=== PATIENT | female | born 1980 | race Caucasian/White ===

== ENCOUNTER 2017-08-08 17:48 | Emergency (ER) | payer MEDICAID ==
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
--- NOTE | 2017-08-09 06:57 | CR ---
Left knee: Four views of the left knee were obtained. Comparison: No previous study. Medial and lateral joint spaces are preserved. No joint effusion is seen. No fracture or other bony abnormality is appreciated. Impression: 1. No acute abnormality is identified on left knee exam. Diagnostic code #1
== END 2017-08-08 19:33 | disposition home or self-care (01) ==
LOC: JD.ED 17:48
DX: S80.02XA Contusion of left knee, initial encounter (principal); F17.210 Nicotine dependence, cigarettes, uncomplicated; V87.8XXA Person injured in other specified noncollision transport accidents involving motor vehicle (traffic), initial encounter
CPT/HCPCS: 73564-26-LT; 73564-LT; 99283

== ENCOUNTER 2019-08-19 12:08 | Emergency (ER) | payer SELFPAY ==
[2019-08-19] MEDS ORDERED: Metoclopramide 10 MG/2 ML SDV IVPUSH ONE (12:24)
[2019-08-19] MEDS ORDERED: HYDROmorphone 0.5 MG/0.5 ML Syringe IVPUSH ONE (12:24)
--- NOTE | 2019-08-19 12:24 | EDM.PDOC ---
ED HPI GENERAL MEDICAL PROBLEM - General Chief Complaint: Abdominal Pain Stated Complaint: ABDOMINAL PAIN,NAUSEA Time Seen by Provider: 08/19/19 12:17 Source of Information: Reports: Patient History Limitations: Reports: No Limitations - History of Present Illness INITIAL COMMENTS - FREE TEXT/NARRATIVE: 39-year-old female presents the ED with diffuse abdominal pain and nausea she tries to eat. She been feeling under the weather for over a week. She was seen in the clinic on Tuesday, August 15 and KUB suggested she may be constipated. She did take MiraLAX by mouth and had one formed bowel movement followed by 3 diarrhea stools. However she remains nauseated finds it difficult to eat. Pain is felt persistently across her lower abdomen infraumbilical. Only previous abdominal surgery is that of a tubal ligation. Patient has not vomited. She recognizes she is losing weight because she can't eat. Very rare alcohol use. Not aware of any fever or chills per se. Onset: Gradual Onset Date: 08/11/19 Duration: Day(s):, Getting Worse, Waxing/Waning Location: Reports: Abdomen (Mostly lower abdominal discomfort suprapubically radiating across both lower quadrants of the abdomen.) Quality: Reports: Ache, Other (Associated nausea if she tries to eat.) Severity: Moderate Improves with: Reports: None Worsens with: Reports: Eating Context: Reports: Other. Denies: Activity, Exercise, Lifting, Sick Contact, Trauma Associated Symptoms: Reports: Loss of Appetite, Malaise. Denies: Confusion, Chest Pain (Spontaneous occurrence), Cough, cough w sputum, Diaphoresis, Fever/ Chills, Headaches, Nausea/Vomiting, Rash, Seizure, Shortness of Breath, Syncope Treatments [employer]: Reports: Other (see below) (None.) Abdomen Pain Score (Numeric/FACES): 6 - Related Data Allergies Allergy/AdvReac Type Severity Reaction Status Date / Time No Known Allergies Allergy Verified 08/08/17 17:57 Home Meds: Home Meds Ondansetron [Zofran] 4 mg BUCCAL Q6H PRN #5 tab 08/19/19 [Rx] Past Medical History - Past Surgical History Female Surgical History: Reports: Tubal Ligation (Done infraumbilical.) Social & Family History - Family History Family Medical History: Noncontributory - Caffeine Use Caffeine Use: Reports: Coffee, Energy Drinks, Soda, Tea - Living Situation & Occupation Living situation: Reports: Single Occupation: Unemployed ED ROS GENERAL - Review of Systems Review Of Systems: See Below Constitutional: Reports: Malaise, Weakness, Fatigue, Decreased Appetite, Weight Loss. Denies: Fever, Chills HEENT: Reports: No Symptoms Respiratory: Reports: No Symptoms Cardiovascular: Reports: No Symptoms Endocrine: Reports: No Symptoms GI/Abdominal: Reports: Abdominal Pain, Decreased Appetite (See history of present illness), Nausea. Denies: Constipation, Hematemesis, Hematochezia, Vomiting : Reports: No Symptoms Musculoskeletal: Reports: No Symptoms Skin: Reports: No Symptoms Neurological: Reports: No Symptoms Psychiatric: Reports: No Symptoms Hematologic/Lymphatic: Reports: No Symptoms Immunologic: Reports: No Symptoms ED EXAM, GI/ABD - Physical Exam Exam: See Below Exam Limited By: No Limitations General Appearance: Alert, WD/WN, No Apparent Distress, Other (Mildly palate in color. Vital signs show temperature 36.3 pulse is 91 and sinus respiratory distress 20 BP is 136/88 and O2 sats are 100% on room air.) Eyes: Bilateral: Normal Appearance (No scleral icterus. No peripheral pallor.) Throat/Mouth: Other Head: Atraumatic (Lips are mildly dry. Tongue is mildly dry and coated.), Normocephalic Neck: Normal Inspection, Supple, Non-Tender, Full Range of Motion. No: Lymphadenopathy (L), Lymphadenopathy (R) Respiratory/Chest: No Respiratory Distress, Lungs Clear, Normal Breath Sounds, No Accessory Muscle Use Cardiovascular: Normal Peripheral Pulses, Regular Rate, Rhythm, No Edema, No Gallop, No Murmur, No Rub GI/Abdominal Exam: Soft (Bowel sounds are few and far between.), No Organomegaly , No Distention, No Mass, Pelvis Stable, Tender (Tender along the right upper quadrant medially with a positive 's sign.), Abnormal Bowel Sounds Back Exam: Normal Inspection, Full Range of Motion. No: CVA Tenderness (L), CVA Tenderness (R) Extremities: Normal Inspection, Normal Range of Motion, Non-Tender, No Pedal Edema Neurological: Alert, Oriented, CN II-XII Intact, Normal Cognition Psychiatric: Normal Affect, Normal Mood Skin Exam: Warm, Dry, Intact, Normal Color, No Rash Course - Vital Signs Last Recorded V/S: Last Vital Signs Temp 36.3 C 08/19/19 12:20 Pulse 91 08/19/19 12:20 Resp 20 08/19/19 12:20 BP 136/88 08/19/19 12:20 Pulse Ox 100 08/19/19 12:20 - Orders/Labs/Meds Orders: Active Orders 24 hr Category Date Time Status Abdomen 1V Flat [CR] Stat Exams 08/19/19 12:26 Taken URINALYSIS W/MICROSCOPIC [UA W/MICROSCOPIC] [URIN] Stat Lab 08/19/19 13:28 Results Dextrose 5%-Lactated Ringers 1,000 ml Med 08/19/19 12:30 Active IV ASDIRECTED Medication Orders Dextrose/Lactated Ringer's (Dextrose 5%-Lactated Ringers) 1,000 mls @ 999 mls/ hr IV ASDIRECTED ROLANDO Last Admin: 08/19/19 12:38 Dose: 999 mls/hr Labs: Laboratory Tests 08/19/19 08/19/19 08/19/19 Range/Units 12:50 12:50 12:50 WBC 6.61 (3.98-10.04) K/mm3 RBC 4.67 (3.98-5.22) M/mm3 Hgb 13.3 (11.2-15.7) gm/dl Hct 40.7 (34.1-44.9) % MCV 87.2 (79.4-94.8) fl MCH 28.5 (25.6-32.2) pg MCHC 32.7 (32.2-35.5) g/dl RDW Std Deviation 42.0 (36.4-46.3) fL Plt Count 276 (182-369) K/mm3 MPV 11.4 (9.4-12.3) fl Neut % (Auto) 67.4 (34.0-71.1) % Lymph % (Auto) 24.5 (19.3-51.7) % Preston % (Auto) 6.2 (4.7-12.5) % Eos % (Auto) 1.2 (0.7-5.8) Baso % (Auto) 0.5 (0.1-1.2) % Neut # (Auto) 4.46 (1.56-6.13) K/mm3 Lymph # (Auto) 1.62 (1.18-3.74) K/mm3 Preston # (Auto) 0.41 H (0.24-0.36) K/mm3 Eos # (Auto) 0.08 (0.04-0.36) K/mm3 Baso # (Auto) 0.03 (0.01-0.08) K/mm3 Sodium 141 (136-145) mEq/L Potassium 4.3 (3.5-5.1) mEq/L Chloride 106 (98-107) mEq/L Carbon Dioxide 26 (21-32) mEq/L Anion Gap 13.3 (5-15) BUN 10 (7-18) mg/dL Creatinine 0.8 (0.55-1.02) mg/dL Est Cr Clr Drug Dosing 76.55 mL/min Estimated GFR (MDRD) > 60 (>60) mL/min BUN/Creatinine Ratio 12.5 L (14-18) Glucose 87 (74-106) mg/dL Calcium 8.9 (8.5-10.1) mg/dL Total Bilirubin 0.5 (0.2-1.0) mg/dL GGT 27 (5-55) U/L AST 14 L (15-37) U/L ALT 26 (14-59) U/L Alkaline Phosphatase 78 (46-116) U/L C-Reactive Protein < 0.2 (<1.0) mg/dL Total Protein 7.6 (6.4-8.2) g/dl Albumin 3.9 (3.4-5.0) g/dl Globulin 3.7 gm/dL Albumin/Globulin Ratio 1.1 (1-2) Lipase 69 L (73-393) U/L Urine Color (Yellow) Urine Appearance (Clear) Urine pH (5.0-8.0) Ur Specific [place] (1.005-1.030) Urine Protein (Negative) Urine Glucose (UA) (Negative) Urine Ketones (Negative) Urine Occult Blood (Negative) Urine Nitrite (Negative) Urine Bilirubin (Negative) Urine Urobilinogen (0.2-1.0) Ur Leukocyte Esterase (Negative) Ketones 0.2 (0.0-0.3) mM 08/19/ Range/Units 13:28 WBC (3.98-10.04) K/mm3 RBC (3.98-5.22) M/mm3 Hgb (11.2-15.7) gm/dl Hct (34.1-44.9) % MCV (79.4-94.8) fl MCH (25.6-32.2) pg MCHC (32.2-35.5) g/dl RDW Std Deviation (36.4-46.3) fL Plt Count (182-369) K/mm3 MPV (9.4-12.3) fl Neut % (Auto) (34.0-71.1) % Lymph % (Auto) (19.3-51.7) % Preston % (Auto) (4.7-12.5) % Eos % (Auto) (0.7-5.8) Baso % (Auto) (0.1-1.2) % Neut # (Auto) (1.56-6.13) K/mm3 Lymph # (Auto) (1.18-3.74) K/mm3 Preston # (Auto) (0.24-0.36) K/mm3 Eos # (Auto) (0.04-0.36) K/mm3 Baso # (Auto) (0.01-0.08) K/mm3 Sodium (136-145) mEq/L Potassium (3.5-5.1) mEq/L Chloride (98-107) mEq/L Carbon Dioxide (21-32) mEq/L Anion Gap (5-15) BUN (7-18) mg/dL Creatinine (0.55-1.02) mg/dL Est Cr Clr Drug Dosing mL/min Estimated GFR (MDRD) (>60) mL/min BUN/Creatinine Ratio (14-18) Glucose (74-106) mg/dL Calcium (8.5-10.1) mg/dL Total Bilirubin (0.2-1.0) mg/dL GGT (5-55) U/L AST (15-37) U/L ALT (14-59) U/L Alkaline Phosphatase (46-116) U/L C-Reactive Protein (<1.0) mg/dL Total Protein (6.4-8.2) g/dl Albumin (3.4-5.0) g/dl Globulin gm/dL Albumin/Globulin Ratio (1-2) Lipase (73-393) U/L Urine Color Light yellow (Yellow) Urine Appearance Clear (Clear) Urine pH 7.0 (5.0-8.0) Ur Specific [place] 1.020 (1.005-1.030) Urine Protein Negative (Negative) Urine Glucose (UA) Trace H (Negative) Urine Ketones Negative (Negative) Urine Occult Blood 2+ H (Negative) Urine Nitrite Negative (Negative) Urine Bilirubin Negative (Negative) Urine Urobilinogen 0.2 (0.2-1.0) Ur Leukocyte Esterase Negative (Negative) Ketones (0.0-0.3) mM Meds: Medications Generic Name Dose Route Start Last Admin Trade Name Freq PRN Reason Stop Dose Admin Dextrose/Lactated Ringer's 1,000 mls @ 999 mls/hr 08/19/19 12:30 08/19/19 12: 38 Dextrose 5%-Lactated Ringers IV 999 mls/hr ASDIRECTED ROLANDO Administration Discontinued Medications Generic Name Dose Route Start Last Admin Trade Name Freq PRN Reason Stop Dose Admin Hydromorphone HCl 0.5 mg 08/19/19 12:24 08/19/19 12:56 Dilaudid IVPUSH 08/19/19 12:25 0.5 mg ONETIME ONE Administration Metoclopramide HCl 7.5 mg 08/19/19 12:24 08/19/19 12:54 Reglan IVPUSH 08/19/19 12:25 7.5 mg ONETIME ONE Administration - Radiology Interpretation Free Text/Narrative:: 39-year-old female presents to the ED with a one-week history of generally not feeling well. She reports nausea most of the time worsened if she tries to eat. She has not vomited. She attended the clinic on Tuesday last week and KUB suggested she may be constipated. She did take MiraLAX with one bowel movement followed by 3 L diarrhea stools. She reports she's not been able to eat very much because of the increased pain if she tries to eat. Pain is felt mostly across her lower abdomen I infraumbilical. On exam she has a positive 's sign and tenderness along the right costal margin on palpation suggesting possibility of gallbladder disease. Bowel sounds are few and far between throughout the abdomen but the rest of the abdomen is benign with no guarding or rebound tenderness or localized pain. An IV will be D5 Ringer's lactate at open. Will be given Reglan 7.5 mg IV for nausea relief and Dilaudid 0.5 mg IV for pain relief. Routine labs including a serum lipase and CRP and GGT will be obtained. One view of the abdomen to be done. - Re-Assessments/Exams Free Text/Narrative Re-Assessment/Exam: 08/19/19 13:15: KUB reveals a bolus of stool in the hepatic flexure coming from the ascending colon across the hepatic flexure of the transverse colon. There are several dilated loops of small bowel also in this area compatible with an ileus like pattern. No bowel obstruction is evident. There is mild amount of stool in the rectal vault. Bedside ultrasound was performed by me. I found this quite difficult because of the overlying skin stool in the colon. Gallbladder that I could visualized and contains no stones and no pericholecystic fluid or thickened gallbladder wall. 08/19/19 13:36 White count is 6.61 with auto differential of 67.4% neutrophils. Hemoglobin is 13.3 with hematocrit of 40.7. Platelet counts 276,000. Sodium 141 with potassium of 4.3. Toward 106 with a bicarbonate 26. Anion gap is 13.3 BUN is 10 with a creatinine of 0.8. GFR remains greater than 60. Blood glucose is 87. Calcium is 8.9. Liver function is completely normal. C-reactive protein is less than 0.2. Lipase is 69. Total protein is 7.6 with an albumin fraction of 3.9. Serum ketones are 0.2. 08/19/19 13:55 patient remains completely pain-free. Labs are normal. Going to place her on 5 scoops of MiraLAX powder in 20 ounces of Gatorade to provide bowel movement versus magnesium citrate. I will have her stay on MiraLAX powder 17 g once daily to provide regular bowel movements for the next couple of weeks. I will send her home is Zofran 4 mg sublingual every 4-6 hours when necessary for nausea relief if needed. Departure - Departure Time of Disposition: 13:56 Disposition: Home, Self-Care 01 Condition: Fair Clinical Impression: Constipation by delayed colonic transit Abdominal pain Qualifiers: Abdominal location: lower abdomen, unspecified Qualified Code(s): R10.30 - Lower abdominal pain, unspecified - Discharge Information *PRESCRIPTION DRUG MONITORING PROGRAM REVIEWED*: Not Applicable *COPY OF PRESCRIPTION DRUG MONITORING REPORT IN PATIENT VANESA: Not Applicable Prescriptions: Ondansetron [Zofran] 4 mg BUCCAL Q6H PRN #5 tab PRN Reason: nausea or vomiting Instructions: Constipation, Adult Referrals: Patricio Becerra MD [Primary Care Provider] - Forms: ED Department Discharge Additional Instructions: Evaluation the emergency room today due to persistent nausea for the better part of her week making it difficult to eat or drink anything. Persistent diffuse lower abdominal discomfort and bloat. Evaluation with on August 15 suggested that you were suffering constipation. Magnesium citrate or Citroma produced one bowel movement but lots of loose diarrhea stool. In spite of this the pain persists associated with nausea. Benign abdominal examination with question bowel sounds on exam. Also identified some tenderness in the right upper quadrant of the abdomen exam suggesting the possibility of gallbladder disease. Once again an x-ray that was done and shows stool up in the right upper quadrant of the abdomen in the distribution of where your pain is on exam. This is in the upper or the ascending colon in the beginning portion of the transverse colon up underneath her right rib cage. Is a small amount of stool down in the rectal vault as well. There is air in the small bowel and it is slightly dilated as it is having trouble passing through the stool plug in the right hemicolon. Lab tests proved to be completely normal with no signs of pancreatitis or inflammation of the liver or any signs of infection. You're treated with intravenous fluids and Dilaudid 0.5 mg with Reglan 7.5 mg to reduce nausea and pain which was successful. Suggest treatment at home to be 5 scoops of MiraLAX powder with 20 ounces of Gatorade by mouth. This will usually make her bowels work slowly in 45 hours once or twice and help the stool plug move along. I would suggest taking MiraLAX powder 17 g 1 scoop every day for the next 2 weeks to make sure the bowels stays regular and prevent recurrence of similar problems. Coarse drinking plenty of fluids is important and whole-grain breads and cereals and plenty of vegetables and increase fiber. I have also written a prescription for Zofran 4 mg to be taken under your tongue every 4-6 hours needed for nausea relief so that she can eat and drink normally. Follow-up with personal care physician if any further problems occur or you are not markedly improved in 48-72 hours time. - My Orders Last 24 Hours: My Active Orders 08/19/19 12:26 Abdomen 1V Flat [CR] Stat 08/19/19 12:30 Dextrose 5%-Lactated Ringers 1,000 ml IV ASDIRECTED 08/19/19 13:28 URINALYSIS W/MICROSCOPIC [UA W/MICROSCOPIC] [URIN] Stat - Assessment/Plan Last 24 Hours: My Active Orders 08/19/19 12:26 Abdomen 1V Flat [CR] Stat 08/19/19 12:30 Dextrose 5%-Lactated Ringers 1,000 ml IV ASDIRECTED 08/19/19 13:28 URINALYSIS W/MICROSCOPIC [UA W/MICROSCOPIC] [URIN] Stat
[2019-08-19] MEDS ORDERED: Dextrose 5%-Lactated Ringers 1,000 ML IV SCH (12:30)
--- NOTE | 2019-08-19 16:15 | CR ---
Abdomen: Supine view of the abdomen was obtained. Comparison: No previous study. Calcifications are seen within the pelvis which are compatible with phleboliths. Bowel gas pattern is felt to be within normal limits. No discrete soft tissue finding is seen. Bony structures are unremarkable. Impression: 1. Nothing acute is appreciated on supine abdominal x-ray. Diagnostic code #2
== END 2019-08-19 14:05 | disposition home or self-care (01) ==
LOC: JD.ED 12:08
DX: K59.01 Slow transit constipation (principal); R10.33 Periumbilical pain
CPT/HCPCS: 36415; 74018; 80053; 81001; 82009; 82977; 83690; 85025; 86140; 96361; 96374; 96375; 99284; J1170; J2765; J7042; 99283

== ENCOUNTER 2020-02-04 20:42 | Emergency (ER) | payer MEDICAID ==
--- NOTE | 2020-02-04 21:47 | EDM.PDOC ---
ED HPI GENERAL MEDICAL PROBLEM - General Chief Complaint: ENT Problem Stated Complaint: PRESSURE IN THROAT AND SEEING SPOTS IN VISION Time Seen by Provider: 02/04/20 21:03 Source of Information: Reports: Patient, RN Notes Reviewed - History of Present Illness INITIAL COMMENTS - FREE TEXT/NARRATIVE: 39 yr old female with a mild soreness and sensation of swelling or something stuck R throat for the past 2 to 3 wks. No severe pain with swollowing. Has been eating and drinking OK. No fever, chills, cough or nasal arcenio. This evening at work started feeling light headed, dizzy, started seeing white spots and shapes peripheral vision associated with mild Reilly. Also had mild nausea. That has now all resolved and feeling back to normal at time of exam. Right Throat Pain Score (Numeric/FACES): 3 - Related Data Allergies Allergy/AdvReac Type Severity Reaction Status Date / Time No Known Allergies Allergy Verified 02/04/20 21:06 Past Medical History - Past Health History Medical/Surgical History: Denies Medical/Surgical History - Past Surgical History Female Surgical History: Reports: Tubal Ligation Social & Family History - Family History Family Medical History: Noncontributory - Tobacco Use Smoking Status *Q: Current Every Day Smoker Years of Tobacco use: 20 Packs/Tins Daily: 0.3 - Caffeine Use Caffeine Use: Reports: Coffee, Tea - Recreational Drug Use Recreational Drug Use: No - Living Situation & Occupation Living situation: Reports: Single Occupation: Unemployed ED ROS ENT - Review of Systems Review Of Systems: See Below Constitutional: Denies: Fever, Chills, Diaphoresis HEENT: Reports: Other (fullness senstation R throat and neck) Respiratory: Denies: Shortness of Breath Cardiovascular: Denies: Chest Pain GI/Abdominal: Denies: Abdominal Pain, Nausea, Vomiting Musculoskeletal: Denies: Neck Pain Skin: Denies: Rash, Erythema Neurological: Reports: Headache (mild, now almost gone) ED EXAM, ENT - Physical Exam Exam: See Below General Appearance: Alert, No Apparent Distress Ears: Normal External Exam Nose: Normal Inspection Mouth/Throat: Normal Inspection, Normal Gums. No: Lip Swelling, Peritonsillar Mass, Pharyngeal Erythema, Tonsillar Erythema, Tonsillar Exudates, Tonsillar Swelling Head: Atraumatic. No: Facial Swelling Neck: Supple, Lymphadenopathy (R) (one small lymph node R lat neck) Respiratory/Chest: No Respiratory Distress, Lungs Clear, Normal Breath Sounds Cardiovascular: Regular Rate, Rhythm Extremities: Normal Inspection, Normal Range of Motion Neurological: Alert, Oriented, No Motor/Sensory Deficits, Other (finger to nose testing nl) Skin: Warm, Dry, Normal Color Course - Vital Signs Last Recorded V/S: Last Vital Signs Temp 98.8 F 02/04/20 21:00 Pulse 96 02/04/20 21:00 Resp 20 02/04/20 21:00 BP 141/89 H 02/04/20 21:00 Pulse Ox 99 02/04/20 21:00 - Orders/Labs/Meds Labs: Laboratory Tests 02/04/20 Range/Units 21:53 WBC 7.62 (3.98-10.04) K/mm3 RBC 4.52 (3.98-5.22) M/mm3 Hgb 13.1 (11.2-15.7) gm/dl Hct 40.7 (34.1-44.9) % MCV 90.0 (79.4-94.8) fl MCH 29.0 (25.6-32.2) pg MCHC 32.2 (32.2-35.5) g/dl RDW Std Deviation 41.4 (36.4-46.3) fL Plt Count 277 (182-369) K/mm3 MPV 11.3 (9.4-12.3) fl Neut % (Auto) 71.5 H (34.0-71.1) % Lymph % (Auto) 20.1 (19.3-51.7) % [place] % (Auto) 7.0 (4.7-12.5) % Eos % (Auto) 0.9 (0.7-5.8) Baso % (Auto) 0.4 (0.1-1.2) % Neut # (Auto) 5.45 (1.56-6.13) K/mm3 Lymph # (Auto) 1.53 (1.18-3.74) K/mm3 [place] # (Auto) 0.53 H (0.24-0.36) K/mm3 Eos # (Auto) 0.07 (0.04-0.36) K/mm3 Baso # (Auto) 0.03 (0.01-0.08) K/mm3 - Re-Assessments/Exams Free Text/Narrative Re-Assessment/Exam: 02/04/20 22:28. BP was mildly high on arrival that has come down to a better level 134/86. She has been resting comfortably while here in the ED. CBC nl. Sinus rythm, no ectopy. I believe she had a near syncopal episode at work. Her throat looks good, I do not see any sign of infection, abcess, unusual mass or swelling at this time. Discharge instr. as documented. Departure - Departure Time of Disposition: 22:20 Disposition: Home, Self-Care 01 Condition: Fair Clinical Impression: Pharyngitis, Near syncope - Discharge Information Instructions: Near-Syncope, [id number], Pharyngitis, [id number] Referrals: Patricio Becerra MD [Primary Care Provider] - Forms: ED Department Discharge Additional Instructions: Drink plenty of water to maintain hydration. Your WBC, hgb is normal. Your BP was mildly high on arrival but has come down to more normal readings. See Dr Caputo for follow up regarding your throat symptoms in 5 to 7 days or next available appointment. Return to ED as needed if symptoms worsening in any way. Sepsis Event Note - Evaluation Sepsis Screening Result: No Definite Risk - Focused Exam Vital Signs: Vital Signs Temp Pulse Resp BP Pulse Ox 02/04/20 21:00 98.8 F 96 20 141/89 H 99 Date Exam was Performed: 02/04/20 Time Exam was Performed: 22:28
== END 2020-02-04 22:30 | disposition home or self-care (01) ==
LOC: JD.ED 20:42
DX: J02.9 Acute pharyngitis, unspecified (principal); R55 Syncope and collapse; F17.210 Nicotine dependence, cigarettes, uncomplicated
CPT/HCPCS: 36415; 85025; 99282; 99284

== ENCOUNTER 2020-02-17 14:51 | Emergency (ER) | payer MEDICAID ==
--- NOTE | 2020-02-17 15:50 | EDM.PDOC ---
ED HPI GENERAL MEDICAL PROBLEM - General Chief Complaint: General Stated Complaint: NECK PAIN Time Seen by Provider: 02/17/20 15:12 Source of Information: Reports: Patient, Old Records, RN Notes Reviewed History Limitations: Reports: No Limitations - History of Present Illness INITIAL COMMENTS - FREE TEXT/NARRATIVE: Patient is a [id number] who presents to the ED for the evaluation of her right neck discomfort. This has been going on for around 1.5 months now, but does see to have worsened in the last 1.5 weeks. She was seen in this ER roughly a week ago, and was told she had pharyngitis. She did follow-up with her regular care provider, Dr. Becerra and had a strep and mono test and these were both negative. Patient complains of some pressure type feelings on the right anterior lateral portion of her throat. She thinks that she can maybe feel a lymph node or a bump that is inflamed, otherwise she is not having any difficulty swallowing, or eating. She states that Tylenol does seem to help the pain or pressure. She is not complaining of any fevers chills, cough, shortness of breath, or any other sick-like symptoms. Patient notes that the pain does not necessarily worsen with movement, but nothing really makes it feel better other than the Tylenol. Right Neck Pain Score (Numeric/FACES): 4 - Related Data Allergies Allergy/AdvReac Type Severity Reaction Status Date / Time No Known Allergies Allergy Verified 02/17/20 15:24 Home Meds: Home Meds . [No Known Home Meds] 02/17/20 [History] Past Medical History - Past Health History Medical/Surgical History: Denies Medical/Surgical History - Past Surgical History Female Surgical History: Reports: Tubal Ligation Social & Family History - Family History Family Medical History: Noncontributory - Tobacco Use Smoking Status *Q: Current Every Day Smoker Years of Tobacco use: 20 Packs/Tins Daily: 0.2 - Caffeine Use Caffeine Use: Reports: Coffee, Tea - Recreational Drug Use Recreational Drug Use: No - Living Situation & Occupation Living situation: Reports: Single Occupation: Unemployed ED ROS GENERAL - Review of Systems Review Of Systems: Comprehensive ROS is negative, except as noted in HPI. ED EXAM, GENERAL - Physical Exam Exam: See Below Exam Limited By: No Limitations General Appearance: Alert, WD/WN, No Apparent Distress Eye Exam: Bilateral Eye: EOMI, Normal Inspection, PERRL Ears: Normal External Exam, Normal Canal, Hearing Grossly Normal, Normal TMs Nose: Normal Inspection Throat/Mouth: Normal Inspection, Normal Lips, Normal Teeth, Normal Gums, Normal Oropharynx, Normal Voice, No Airway Compromise Head: Atraumatic, Normocephalic Neck: Normal Inspection, Supple, Full Range of Motion, Lymphadenopathy (R) (1 shoddy movable node, non-tender but is palpable. She states that this is the lump she was feeling.), Tender Lateral (mild tenderness/pressure type feeling to R anteriolateral throat) Respiratory/Chest: No Respiratory Distress, Lungs Clear, Normal Breath Sounds, No Accessory Muscle Use, Chest Non-Tender Cardiovascular: Normal Peripheral Pulses, Regular Rate, Rhythm, No Murmur Back Exam: Normal Inspection, Full Range of Motion Extremities: Normal Inspection, Normal Capillary Refill Neurological: Alert, Oriented, Normal Cognition, No Motor/Sensory Deficits Psychiatric: Normal Affect, Normal Mood Skin Exam: Warm, Dry, Intact, Normal Color, No Rash Lymphatic: Adenopathy (cervical, see neck assessment) Course - Vital Signs Last Recorded V/S: Last Vital Signs Temp 98.4 F 02/17/20 15:14 Pulse 92 02/17/20 15:14 Resp 16 02/17/20 15:14 BP 130/88 02/17/20 15:14 Pulse Ox 97 02/17/20 15:14 - Re-Assessments/Exams Free Text/Narrative Re-Assessment/Exam: 02/17/20 15:53 Patient presents to the ED for evaluation of her right neck discomfort. Did offer to perform labs, she states she recently had these done and would rather not have them repeated, I will obtain a head/neck soft tissue ultrasound for further evaluation, if this comes inconclusive or otherwise, I will likely have her follow-up with her regular care provider for further evaluation and management. 02/17/20 16:37 Ultrasound demonstrates a lymph node that measures 2.8 cm, which seems to be mildly enlarged, but has a normal echogenic center and is hypoechoic on its rim. Enlargement is most likely felt to be inflammatory basis. I will relay this to the patient, and likely have her follow-up with her primary care physician for further evaluation and or possible biopsy and management. She can take some Tylenol and/or ibuprofen every 6 hours as needed for further relief. Departure - Departure Time of Disposition: 16:38 Disposition: Home, Self-Care 01 Condition: Good Clinical Impression: Enlarged lymph node in neck - Discharge Information *PRESCRIPTION DRUG MONITORING PROGRAM REVIEWED*: No *COPY OF PRESCRIPTION DRUG MONITORING REPORT IN PATIENT VANESA: No Instructions: Lymphadenopathy Referrals: Patricio Becerra MD [Primary Care Provider] - Forms: ED Department Discharge Additional Instructions: You were seen in this ER for the evaluation of your neck discomfort. An ultrasound was obtained at this ER visit, and does demonstrate a single lymph node that is inflamed, roughly 2.8 cm which is slightly enlarged. Lymph nodes can become inflamed from many different sources, viral infections, bacterial infections. You may have a swollen lymph node due to the recent viral infection that you had. From these findings, will recommend you continue to use Tylenol/ibuprofen every 6 hours for further pain/inflammation relief. You might have better luck trying with the ibuprofen versus the Tylenol for inflammation relief. Please do not exceed 4000 mg Tylenol or 3200 mg ibuprofen in a 24-hour time span. You have been given a copy of this ultrasound report in your discharge packet, highly and strongly recommend you follow-up with your primary care physician, early tomorrow morning for reevaluation and to see if he thinks a lymph node biopsy would be warranted, or further imaging like CTs. Please return to the ER at any time if symptoms change or worsen. Sepsis Event Note - Evaluation Sepsis Screening Result: No Definite Risk - Focused Exam Vital Signs: Vital Signs Temp Pulse Resp BP Pulse Ox 02/17/20 15:14 98.4 F 92 16 130/88 97 Date Exam was Performed: 02/17/20 Time Exam was Performed: 16:43
--- NOTE | 2020-02-17 16:33 | US ---
Neck ultrasound: Multiple real-time images of the right neck were obtained. Lymph node correlating to lump is seen within the right neck. Lymph node measures about 2.8 cm which is mildly enlarged although normal echogenic center and hypoechoic rim is seen. Enlargement most likely on an inflammatory basis. Impression: 1. Lymph node correlating to lump within the right neck as described above. Diagnostic code #3 This report was dictated in MDT
== END 2020-02-17 16:55 | disposition home or self-care (01) ==
LOC: JD.ED 14:51
DX: R59.0 Localized enlarged lymph nodes (principal); F17.210 Nicotine dependence, cigarettes, uncomplicated
CPT/HCPCS: 76536; 76536-26; 99282; 99283-25